=== PATIENT | female | born 1965 | race African-American/Black ===

== ENCOUNTER 2020-06-05 16:01 | Inpatient (IN) | payer SELFPAY ==
[2020-06-05] MEDS ORDERED: ONDANSETRON *ODT* 4 MG TABLET ONE (16:53)
[2020-06-05] MEDS ORDERED: MAG HYDROX/AL HYDROX/SIMETH 30 ML UNIT-DOSE CUP PO ONE (17:34)
[2020-06-05] MEDS ORDERED: FAMOTIDINE 20 MG/50 ML IVPB 20 MG/50 ML MG IVPB ONE ×2 (17:34→17:56)
[2020-06-05] MEDS ORDERED: SODIUM CHLORIDE 1,000 ML IV STA ×2 (17:35→20:26)
[2020-06-05] MEDS ORDERED: MAG HYDROX/AL HYDROX/SIMETH 30 ML UNIT-DOSE CUP ONE (17:56)
[2020-06-05 19:03] LABS: BASO % 0.3 % (0-2.0); EOS % 0.2 % (0-4.5); HEMOGLOBIN 13.3 GM/dL (10.7-15.3); LYMPH % 9.3 % (8-40); MCH 29.4 pg (25.7-33.7); MCHC 32.4 g/dl (32.0-36.0); MEAN CELL VOLUME 90.8 fl (80-96); MEAN PLT VOLUME 7.7 fl (7.5-11.1); MONO % 1.8 % (3.8-10.2); NEUT % 88.4 % (42.8-82.8); PLATELET COUNT 313 K/MM3 (134-434); RBC 4.52 M/mm3 (3.60-5.2); RDW 13.9 % (11.6-15.6); WHITE BLOOD COUNT 13.1 K/mm3 (4.0-10.0)
[2020-06-05 19:06] LABS: PH,URINE 8.5 (5.0-8.0); URINE APPEARANCE CLOUDY; URINE BILIRUBIN NEGATIVE (NEGATIVE); URINE COLOR YELLOW; URINE GLUCOSE (UA) NEGATIVE (NEGATIVE); URINE KETONE NEGATIVE (NEGATIVE); URINE LEUK ESTERASE NEGATIVE (NEGATIVE); URINE NITRITE NEGATIVE (NEGATIVE); URINE PROTEIN TRACE (NEGATIVE); URINE UROBILINOGEN 0.2 mg/dL (0.2-1.0)
[2020-06-05 19:20] LABS: CREATININE 0.8 mg/dL (0.55-1.3)
[2020-06-05] MEDS ORDERED: SODIUM CHLORIDE 500 ML IV STA (19:23)
[2020-06-05] MEDS ORDERED: ACETAMINOPHEN 1000 MG/100 ML VIAL (NON FORMULARY) IVPB ONE (20:06)
[2020-06-05 20:16] LABS: ALBUMIN 4.2 g/dl (3.4-5.0); BILIRUBIN,TOTAL 0.4 mg/dL (0.2-1); BLOOD UREA NITROGEN 7.6 mg/dL (7-18); CALCIUM 9.2 mg/dL (8.5-10.1); TOT PROT 8.2 g/dl (6.4-8.2)
[2020-06-05] MEDS ORDERED: HYDROmorphone HCL CARPU-JECT 2 MG/1 ML DISP.SYRIN IVPB ONE (20:26)
[2020-06-05] MEDS ORDERED: ACETAMINOPHEN INJECTION 100 ML IVPB ONE (20:27)
[2020-06-05] MEDS ORDERED: HYDROmorphone HCl 2 MG/ML VIAL ONE (20:39)
[2020-06-05] MEDS ORDERED: amLODIPine BESYLATE 5 MG TABLET (FP) PO ONE (21:37)
[2020-06-05] MEDS ORDERED: DEXTROSE 5%-LACTATED RINGERS 1,000 ML IV SCH (22:15)
[2020-06-05 23:24] LABS: CHOLESTEROL 240 mg/dL (50-200)
[2020-06-05 23:25] LABS: TRIGLYCERIDES 150 mg/dL (0-150)
[2020-06-05 23:26] LABS: LDL CHOLESTEROL (ONLY SJRH) 175 mg/dL (5-100)
[2020-06-05 23:44] LABS: HDL CHOLESTEROL 33 mg/dL (40-60)
[2020-06-06] MEDS ORDERED: METOCLOPRAMIDE HCL INJECTION 10 MG/2 ML VIAL IVPB ONE (00:32)
[2020-06-06] MEDS ORDERED: METOCLOPRAMIDE HCL INJECTION 10 MG/2 ML VIAL ONE ×3 (00:34→20:15)
[2020-06-06 00:52] LABS: PH,URINE 5.5 (5.0-8.0); URINE APPEARANCE CLOUDY; URINE BILIRUBIN NEGATIVE (NEGATIVE); URINE COLOR YELLOW; URINE GLUCOSE (UA) NEGATIVE (NEGATIVE); URINE KETONE NEGATIVE (NEGATIVE); URINE LEUK ESTERASE NEGATIVE (NEGATIVE); URINE NITRITE NEGATIVE (NEGATIVE); URINE PROTEIN NEGATIVE (NEGATIVE); URINE UROBILINOGEN 0.2 mg/dL (0.2-1.0)
[2020-06-06] MEDS: LACTATED RINGERS SOLUTION 1,000 ML/1,000 ML INFUS.BAG IV SCH (03:55)
[2020-06-06 07:39] LABS: HEMOGLOBIN 11.5 GM/dL (10.7-15.3); MCH 29.9 pg (25.7-33.7); MEAN CELL VOLUME 90.6 fl (80-96); MEAN PLT VOLUME 7.5 fl (7.5-11.1); PLATELET COUNT 266 K/MM3 (134-434); RBC 3.86 M/mm3 (3.60-5.2); WHITE BLOOD COUNT 8.1 K/mm3 (4.0-10.0)
[2020-06-06 08:06] LABS: POTASSIUM 3.7 mmol/L (3.5-5.1)
[2020-06-06 08:24] LABS: BLOOD UREA NITROGEN 8.1 mg/dL (7-18)
[2020-06-06 08:26] LABS: CALCIUM 8.3 mg/dL (8.5-10.1)
[2020-06-06 08:27] LABS: CREATININE 0.7 mg/dL (0.55-1.3)
[2020-06-06] MEDS ORDERED: ENOXAPARIN NA (PORCINE) 40 MG/0.4 ML DISP.SYRIN SQ ONE (08:59)
[2020-06-06] MEDS ORDERED: LIDOCAINE 5% TOPICAL PATCH ONE (08:59)
[2020-06-06] MEDS: LIDOCAINE 5% TOPICAL PATCH TP SCH (09:06)
[2020-06-06] MEDS: ENOXAPARIN NA (PORCINE) 40 MG/0.4 ML DISP.SYRIN SQ SCH (09:07)
[2020-06-06 09:08] LABS: ALBUMIN 3.2 g/dl (3.4-5.0)
[2020-06-06 09:10] LABS: BILIRUBIN,DIRECT 0.1 mg/dL (0.0-0.2); BILIRUBIN,TOTAL 0.6 mg/dL (0.2-1); TOT PROT 6.4 g/dl (6.4-8.2)
[2020-06-06] MEDS ORDERED: PANTOPRAZOLE 40 MG TABLET PO SCH (10:00)
[2020-06-06] MEDS ORDERED: PANTOPRAZOLE SODIUM 40 MG/100 ML BAG IVPB ONE (10:02)
[2020-06-06] MEDS: PANTOPRAZOLE SODIUM 40 MG VIAL IVPUSH SCH (10:08)
[2020-06-06] MEDS ORDERED: MORPHINE SULFATE 2 MG/ML VIAL ONE (10:39)
[2020-06-06] MEDS: MORPHINE SULFATE 2 MG/ML VIAL IVPUSH PRN (10:50)
[2020-06-06] MEDS: METOCLOPRAMIDE HCL INJECTION 10 MG/2 ML VIAL IVPUSH PRN ×2 (11:58→20:18)
[2020-06-06] MEDS ORDERED: ACETAMINOPHEN 1000 MG/100 ML VIAL (NON FORMULARY) IVPB ONE (20:07)
[2020-06-06] MEDS ORDERED: ACETAMINOPHEN INJECTION 100 ML IVPB ONE (20:09)
[2020-06-06] MEDS ORDERED: ATORVASTATIN CA 40 MG TABLET (FP) PO SCH (22:00)
[2020-06-06] MEDS: LIDOCAINE PATCH REMOVAL MC SCH (22:06)
[2020-06-07 01:37] VITALS: BMI 26.2
[2020-06-07 07:58] LABS: HEMATOCRIT 34.4 % (32.4-45.2); HEMOGLOBIN 11.6 GM/dL (10.7-15.3); MCH 30.1 pg (25.7-33.7); MCHC 33.6 g/dl (32.0-36.0); MEAN CELL VOLUME 89.4 fl (80-96); MEAN PLT VOLUME 7.4 fl (7.5-11.1); PLATELET COUNT 265 K/MM3 (134-434); RBC 3.85 M/mm3 (3.60-5.2); RDW 13.8 % (11.6-15.6)
[2020-06-07] MEDS: LACTATED RINGERS SOLUTION 1,000 ML/1,000 ML INFUS.BAG IV SCH ×2 (09:39→13:39)
[2020-06-07] MEDS: LIDOCAINE 5% TOPICAL PATCH TP SCH ×2 (09:40→09:52)
[2020-06-07] MEDS: PANTOPRAZOLE SODIUM 40 MG VIAL IVPUSH SCH (09:40)
[2020-06-07] MEDS: ENOXAPARIN NA (PORCINE) 40 MG/0.4 ML DISP.SYRIN SQ SCH (09:40)
[2020-06-07] MEDS: METOCLOPRAMIDE HCL INJECTION 10 MG/2 ML VIAL IVPUSH PRN (09:53)
[2020-06-07 11:12] LABS: POTASSIUM 3.7 mmol/L (3.5-5.1)
[2020-06-07 11:20] LABS: BLOOD UREA NITROGEN 8.8 mg/dL (7-18); CALCIUM 8.4 mg/dL (8.5-10.1)
[2020-06-07 11:21] LABS: ALBUMIN 3.2 g/dl (3.4-5.0)
[2020-06-07 11:25] LABS: BILIRUBIN,TOTAL 0.9 mg/dL (0.2-1); CREATININE 0.7 mg/dL (0.55-1.3); TOT PROT 6.3 g/dl (6.4-8.2)
[2020-06-07] MEDS ORDERED: ACETAMINOPHEN 1000 MG/100 ML VIAL (NON FORMULARY) IVPB PRN (12:43)
[2020-06-07] MEDS: LIDOCAINE PATCH REMOVAL MC SCH (21:17)
[2020-06-08] MEDS: LACTATED RINGERS SOLUTION 1,000 ML/1,000 ML INFUS.BAG IV SCH ×2 (02:18→11:44)
[2020-06-08] MEDS: ENOXAPARIN NA (PORCINE) 40 MG/0.4 ML DISP.SYRIN SQ SCH (10:10)
[2020-06-08] MEDS: LIDOCAINE 5% TOPICAL PATCH TP SCH (10:14)
[2020-06-08] MEDS: ONDANSETRON 4 MG/2 ML VIAL IVPUSH PRN ×2 (11:41→21:16)
[2020-06-08 14:47] LABS: HEMATOCRIT 37.3 % (32.4-45.2); HEMOGLOBIN 12.1 GM/dL (10.7-15.3); MCH 29.5 pg (25.7-33.7); MCHC 32.5 g/dl (32.0-36.0); MEAN CELL VOLUME 90.6 fl (80-96); MEAN PLT VOLUME 7.5 fl (7.5-11.1); PLATELET COUNT 304 K/MM3 (134-434); RBC 4.11 M/mm3 (3.60-5.2); RDW 13.7 % (11.6-15.6); WHITE BLOOD COUNT 7.8 K/mm3 (4.0-10.0)
[2020-06-08 15:05] LABS: POTASSIUM 3.2 mmol/L (3.5-5.1)
[2020-06-08 15:08] LABS: CALCIUM 8.6 mg/dL (8.5-10.1)
[2020-06-08 15:09] LABS: ALBUMIN 3.3 g/dl (3.4-5.0); BLOOD UREA NITROGEN 9.3 mg/dL (7-18)
[2020-06-08 15:12] LABS: CREATININE 0.8 mg/dL (0.55-1.3)
[2020-06-08 15:13] LABS: BILIRUBIN,TOTAL 0.7 mg/dL (0.2-1); TOT PROT 6.8 g/dl (6.4-8.2)
[2020-06-08] MEDS: LIDOCAINE PATCH REMOVAL MC SCH (21:11)
[2020-06-09] MEDS: MORPHINE SULFATE 2 MG/ML VIAL IVPUSH PRN ×2 (02:14→21:59)
[2020-06-09] MEDS: ONDANSETRON 4 MG/2 ML VIAL IVPUSH PRN ×2 (10:18→21:59)
[2020-06-09] MEDS: ENOXAPARIN NA (PORCINE) 40 MG/0.4 ML DISP.SYRIN SQ SCH (10:18)
[2020-06-09] MEDS: LIDOCAINE 5% TOPICAL PATCH TP SCH (10:19)
[2020-06-09 11:43] LABS: BASO % 0.6 % (0-2.0); EOS % 2.5 % (0-4.5); HEMATOCRIT 38.4 % (32.4-45.2); HEMOGLOBIN 12.9 GM/dL (10.7-15.3); LYMPH % 24.5 % (8-40); MCH 30.2 pg (25.7-33.7); MCHC 33.5 g/dl (32.0-36.0); MEAN CELL VOLUME 90.1 fl (80-96); MEAN PLT VOLUME 7.5 fl (7.5-11.1); MONO % 8.6 % (3.8-10.2); NEUT % 63.8 % (42.8-82.8); PLATELET COUNT 340 K/MM3 (134-434); RBC 4.26 M/mm3 (3.60-5.2); RDW 13.6 % (11.6-15.6); WHITE BLOOD COUNT 7.9 K/mm3 (4.0-10.0)
[2020-06-09 12:01] LABS: POTASSIUM 3.5 mmol/L (3.5-5.1)
[2020-06-09 12:03] LABS: CALCIUM 8.8 mg/dL (8.5-10.1)
[2020-06-09 12:06] LABS: CREATININE 0.9 mg/dL (0.55-1.3)
[2020-06-09] MEDS ORDERED: POTASSIUM CHLORIDE TABS 20 MEQ TABLET.ER (FP) PO ONE (19:18)
[2020-06-09] MEDS: LIDOCAINE PATCH REMOVAL MC SCH (22:00)
[2020-06-10 08:36] LABS: BASO % 0.6 % (0-2.0); EOS % 4.1 % (0-4.5); HEMATOCRIT 35.8 % (32.4-45.2); HEMOGLOBIN 11.9 GM/dL (10.7-15.3); LYMPH % 34.5 % (8-40); MCH 30.1 pg (25.7-33.7); MCHC 33.2 g/dl (32.0-36.0); MEAN CELL VOLUME 90.7 fl (80-96); MEAN PLT VOLUME 7.3 fl (7.5-11.1); MONO % 8.9 % (3.8-10.2); NEUT % 51.9 % (42.8-82.8); PLATELET COUNT 335 K/MM3 (134-434); RBC 3.95 M/mm3 (3.60-5.2); WHITE BLOOD COUNT 5.9 K/mm3 (4.0-10.0)
[2020-06-10 08:53] LABS: POTASSIUM 4.2 mmol/L (3.5-5.1)
[2020-06-10 08:56] LABS: CALCIUM 8.4 mg/dL (8.5-10.1)
[2020-06-10 08:57] LABS: ALBUMIN 3.2 g/dl (3.4-5.0); BLOOD UREA NITROGEN 12.9 mg/dL (7-18); MAGNESIUM 1.9 mg/dL (1.8-2.4)
[2020-06-10 09:00] LABS: PHOSPHOROUS 4.2 mg/dL (2.5-4.9)
[2020-06-10 09:01] LABS: BILIRUBIN,TOTAL 0.6 mg/dL (0.2-1); TOT PROT 6.6 g/dl (6.4-8.2)
[2020-06-10] MEDS: LIDOCAINE 5% TOPICAL PATCH TP SCH (10:33)
[2020-06-10] MEDS: ENOXAPARIN NA (PORCINE) 40 MG/0.4 ML DISP.SYRIN SQ SCH (10:33)
[2020-06-10] MEDS: ONDANSETRON 4 MG/2 ML VIAL IVPUSH PRN ×2 (10:37→22:12)
[2020-06-10] MEDS: BISACODYL 5 MG TABLET.DR (FP) PO PRN (10:37)
[2020-06-10] MEDS: PANTOPRAZOLE SODIUM 40 MG VIAL IVPUSH SCH (18:47)
[2020-06-10] MEDS: LIDOCAINE PATCH REMOVAL MC SCH (22:03)
[2020-06-10] MEDS: MORPHINE SULFATE 2 MG/ML VIAL IVPUSH PRN (22:05)
[2020-06-11 08:50] LABS: POTASSIUM 4.6 mmol/L (3.5-5.1)
[2020-06-11 08:52] LABS: BLOOD UREA NITROGEN 12.3 mg/dL (7-18)
[2020-06-11 08:53] LABS: ALBUMIN 3.2 g/dl (3.4-5.0); CALCIUM 8.2 mg/dL (8.5-10.1)
[2020-06-11 08:57] LABS: CREATININE 0.9 mg/dL (0.55-1.3)
[2020-06-11 08:58] LABS: BILIRUBIN,TOTAL 0.3 mg/dL (0.2-1); TOT PROT 6.8 g/dl (6.4-8.2)
[2020-06-11] MEDS: MORPHINE SULFATE 2 MG/ML VIAL IVPUSH PRN ×2 (10:20→21:59)
[2020-06-11] MEDS: LIDOCAINE 5% TOPICAL PATCH TP SCH (10:20)
[2020-06-11] MEDS: ENOXAPARIN NA (PORCINE) 40 MG/0.4 ML DISP.SYRIN SQ SCH (10:22)
[2020-06-11] MEDS: PANTOPRAZOLE SODIUM 40 MG VIAL IVPUSH SCH (10:22)
[2020-06-11] MEDS: BISACODYL 5 MG TABLET.DR (FP) PO PRN (10:27)
[2020-06-11 12:41] LABS: INR 1.14 (0.83-1.09); PROTHROMBIN TIME (PATIENT) 13.7 SEC (9.7-13.0)
[2020-06-11] MEDS: ONDANSETRON 4 MG/2 ML VIAL IVPUSH PRN (22:00)
[2020-06-11] MEDS: LIDOCAINE PATCH REMOVAL MC SCH (22:00)
[2020-06-12 08:51] LABS: BASO % 0.6 % (0-2.0); EOS % 5.4 % (0-4.5); HEMATOCRIT 36.4 % (32.4-45.2); HEMOGLOBIN 12.2 GM/dL (10.7-15.3); LYMPH % 38.4 % (8-40); MCH 30.1 pg (25.7-33.7); MCHC 33.4 g/dl (32.0-36.0); MEAN CELL VOLUME 90.2 fl (80-96); MEAN PLT VOLUME 7.3 fl (7.5-11.1); MONO % 9.2 % (3.8-10.2); NEUT % 46.4 % (42.8-82.8); PLATELET COUNT 347 K/MM3 (134-434); RBC 4.04 M/mm3 (3.60-5.2); RDW 13.8 % (11.6-15.6); WHITE BLOOD COUNT 6.3 K/mm3 (4.0-10.0)
[2020-06-12 09:00] LABS: POTASSIUM 4.2 mmol/L (3.5-5.1)
[2020-06-12 09:08] LABS: CALCIUM 8.7 mg/dL (8.5-10.1)
[2020-06-12 09:09] LABS: ALBUMIN 3.2 g/dl (3.4-5.0); BLOOD UREA NITROGEN 10.4 mg/dL (7-18)
[2020-06-12 09:12] LABS: CREATININE 0.9 mg/dL (0.55-1.3)
[2020-06-12 09:13] LABS: BILIRUBIN,TOTAL 0.7 mg/dL (0.2-1); TOT PROT 6.6 g/dl (6.4-8.2)
[2020-06-12] MEDS: PANTOPRAZOLE SODIUM 40 MG VIAL IVPUSH SCH (09:31)
[2020-06-12] MEDS: MORPHINE SULFATE 2 MG/ML VIAL IVPUSH PRN ×2 (09:32→22:37)
[2020-06-12] MEDS: LIDOCAINE 5% TOPICAL PATCH TP SCH (10:00)
[2020-06-12] MEDS ORDERED: fentaNYL CITRATE 250 MCG/5 ML VIAL ONE (15:12)
[2020-06-12] MEDS ORDERED: GLYCOPYRROLATE 0.2 MG/1 ML VIAL ONE (15:12)
[2020-06-12] MEDS ORDERED: PROPOFOL 20 ML ONE ×2 (15:13)
[2020-06-12] MEDS ORDERED: MIDAZOLAM HCL 2 MG/2 ML SINGLE DOSE VIAL ONE (15:13)
[2020-06-12] MEDS ORDERED: ROCURONIUM BROMIDE 100 MG/10 ML VIAL ONE (15:13)
[2020-06-12] MEDS ORDERED: ceFAZolin SODIUM 1 GM VIAL IVPB ONE (15:30)
[2020-06-12] MEDS ORDERED: ceFAZolin SODIUM 1 GM VIAL ONE ×2 (15:33→16:33)
[2020-06-12] MEDS ORDERED: BUPIVACAINE HCL/PF 0.5% (5 MG/ML) 30 ML VIAL IJ ONE ×3 (15:45)
[2020-06-12] MEDS ORDERED: NEOSTIGMINE METHYLSULFATE 0.5 MG/ML - 10 ML MDV ONE (16:16)
[2020-06-12] MEDS ORDERED: KETOROLAC TROMETHAMINE 30 MG/1 ML VIAL ONE (16:33)
[2020-06-12] MEDS ORDERED: DEXAMETHASONE SOD PHOSPHATE 4 MG/1 ML VIAL ONE (16:33)
[2020-06-12] MEDS ORDERED: ONDANSETRON 4 MG/2 ML VIAL IVPUSH PRN ×3 (16:33→17:02)
[2020-06-12] MEDS ORDERED: LIDOCAINE HCL/PF 2% SDV 5ML VIAL ONE (16:33)
[2020-06-12] MEDS ORDERED: ACETAMINOPHEN 1000 MG/100 ML VIAL (NON FORMULARY) IVPB ONE (16:34)
[2020-06-12] MEDS ORDERED: oxyCODONE HCL 5 MG TABLET PO PRN (17:02)
[2020-06-12] MEDS ORDERED: BISACODYL 5 MG TABLET.DR (FP) PO PRN (17:02)
[2020-06-12 20:45] VITALS: TEMP 98.8
[2020-06-12] MEDS ORDERED: LIDOCAINE PATCH REMOVAL MC SCH (22:00)
[2020-06-12] MEDS ORDERED: ACETAMINOPHEN 500 MG TABLET (FP) PO PRN (23:00)
[2020-06-13 05:24] VITALS: BP 121/65; PULSE 70
[2020-06-13] MEDS: MORPHINE SULFATE 2 MG/ML VIAL IVPUSH PRN ×2 (06:08→12:46)
[2020-06-13 08:30] LABS: BASO % 0.3 % (0-2.0); EOS % 0.3 % (0-4.5); HEMOGLOBIN 11.8 GM/dL (10.7-15.3); LYMPH % 16.8 % (8-40); MCH 30.3 pg (25.7-33.7); MCHC 33.6 g/dl (32.0-36.0); MEAN CELL VOLUME 90.3 fl (80-96); MEAN PLT VOLUME 7.3 fl (7.5-11.1); MONO % 5.2 % (3.8-10.2); NEUT % 77.4 % (42.8-82.8); PLATELET COUNT 345 K/MM3 (134-434); RBC 3.88 M/mm3 (3.60-5.2); RDW 13.8 % (11.6-15.6)
[2020-06-13 08:31] LABS: POTASSIUM 4.2 mmol/L (3.5-5.1)
[2020-06-13 08:33] LABS: ALBUMIN 3.2 g/dl (3.4-5.0); BLOOD UREA NITROGEN 12.8 mg/dL (7-18); CALCIUM 8.9 mg/dL (8.5-10.1); MAGNESIUM 1.9 mg/dL (1.8-2.4)
[2020-06-13 08:36] LABS: CREATININE 0.8 mg/dL (0.55-1.3)
[2020-06-13 08:37] LABS: PHOSPHOROUS 4.2 mg/dL (2.5-4.9)
[2020-06-13 08:38] LABS: BILIRUBIN,TOTAL 0.4 mg/dL (0.2-1); TOT PROT 6.6 g/dl (6.4-8.2)
[2020-06-13] MEDS ORDERED: PANTOPRAZOLE SODIUM 40 MG VIAL IVPUSH SCH (10:00)
[2020-06-13] MEDS ORDERED: ENOXAPARIN NA (PORCINE) 40 MG/0.4 ML DISP.SYRIN SQ SCH (10:00)
[2020-06-13] MEDS ORDERED: LIDOCAINE 5% TOPICAL PATCH TP SCH (10:00)
== END 2020-06-13 17:51 | disposition home or self-care (01) | DRG 263 ==
LOC: JER 16:01 → JERBED 21:58 → J6WEST-2 06-06 22:07
PROVIDERS: ADMIT Hospitalist; ATTEND Internal Medicine
PROC: 0FT44ZZ Resection of Gallbladder, Percutaneous Endoscopic Approach (ICD-10-PCS; principal; 2020-06-12 11:00)
DX: K85.10 Biliary acute pancreatitis without necrosis or infection (principal); K80.10 Calculus of gallbladder with chronic cholecystitis without obstruction; I10 Essential (primary) hypertension; K64.8 Other hemorrhoids; R10.13 Epigastric pain; K92.1 Melena
CPT/HCPCS: 36415; 74182-TC; 76705-TC; 80048; 80053; 80061; 80076; 81003; 83605; 83690; 83721; 83735; 84100; 84484; 85025; 85027; 85610; 86850; 86900; 86901; 88304-TC; 93005; 93010; 94760; 99285-25; A9579; C9803; J0131; U0003